=== PATIENT | male | born 1960 | race Caucasian/White ===

== ENCOUNTER 2021-03-30 09:09 | Day surgery (SDC) | payer OTHER ==
[2021-03-28 11:55] VITALS: BMI 29.6
[~2021-03-30 09:09] MED LIST: LACTATED RINGERS 1,000 ML IV SCH; LIDOCAINE 1% (10MG/ML) FOR IV START INTRADERMA PRN
[2021-03-30 10:48] VITALS: RESP 16; TEMP 98.1
[2021-03-30] MEDS ORDERED: PROPOFOL 10 MG/ML 20 ML VIAL IV ONE (12:20)
--- NOTE | 2021-03-30 12:24 | P.GSHP ---
History of Present Illness H&P Date: 03/30/21 Chief Complaint: GI bleed This is a 60-year-old male who presents today for colonoscopy. Patient has issues with rectal bleeding. Past Medical History Past Medical History: GERD/Reflux, Hyperlipidemia, Hypertension, Myocardial Infarction ([place]), Syncope Last Myocardial Infarction Date:: 03/31/15 History of Any Multi-Drug Resistant Organisms: None Reported Past Surgical History: Appendectomy, Bowel Resection, Heart Catheterization With Stent, Hernia Repair Additional Past Surgical History / Comment(s): hernia x3, COLONOSCOPY Past Anesthesia/Blood Transfusion Reactions: No Reported Reaction Date of Last Stent Placement:: 03/31/15 Smoking Status: Never smoker - Past Family History Father Family Medical History: Cancer Medications and Allergies Home Medications Medication Instructions Recorded Confirmed Type Atomoxetine HCl 25 mg PO DAILY 03/28/21 03/28/21 History Atorvastatin [Lipitor] 20 mg PO DAILY 03/28/21 03/28/21 History Losartan [Cozaar] 25 mg PO DAILY 03/28/21 03/28/21 History Meclizine [Antivert] 25 mg PO TID PRN 03/28/21 03/28/21 History Pantoprazole [Protonix] 40 mg PO DAILY 03/28/21 03/28/21 History Sertraline [Zoloft] 50 mg PO DAILY 03/28/21 03/28/21 History Allergies Allergy/AdvReac Type Severity Reaction Status Date / Time No Known Allergies Allergy Verified 03/30/21 10:45 Surgical - Exam Vital Signs Temp Pulse Resp BP Pulse Ox 98.1 F 84 16 143/78 95 03/30/21 10:46 03/30/21 10:46 03/30/21 10:46 03/30/21 10:46 03/30/21 10:46 - General well developed, well nourished, no distress - Eyes PERRL - ENT normal pinna - Neck no masses - Respiratory normal expansion - Cardiovascular Rhythm: regular - Abdomen Abdomen: soft, non tender Assessment and Plan Assessment: GI bleed. We'll perform colonoscopy
--- NOTE | 2021-03-30 12:50 | P.OP ---
Date of Procedure: 03/30/21 Preoperative Diagnosis: GI bleed Postoperative Diagnosis: Diverticulosis Procedure(s) Performed: Colonoscopy Anesthesia: MAC Surgeon: Sherman Pringle Pathology: none sent Condition: stable Disposition: PACU Description of Procedure: The patient's placed on the endoscopy table in the lateral position. He received IV sedation. Digital rectal exam was performed which revealed no abnormalities. Flexible colonoscope was then placed patient anus and passed through the colon. The colonoscope could not be advanced beyond sigmoid colon secondary to tortuosity valve. At this point the scope was withdrawn. The scope was replaced with a pediatric scope.. Scope was able to be placed throughout the entire colon into the ileocecal valve. The cecum, ascending and transverse colon appeared normal. In the descending and sigmoid colon there is mild to moderate diverticulosis. The scope was then brought back the rectum this appeared normal. Scope withdrawn for patient. There is no evidence of GI bleed. His presumed patient may have had a diverticular bleed.
[2021-03-30 13:03] VITALS: BP 146/82; PULSE 60
== END 2021-03-30 13:27 | disposition home or self-care (01) ==
LOC: ORWHC2ENDO 09:09
PROVIDERS: ATTEND Surgery
DX: Q43.8 Other specified congenital malformations of intestine (principal); K92.2 Gastrointestinal hemorrhage, unspecified; K57.30 Diverticulosis of large intestine without perforation or abscess without bleeding; I25.10 Atherosclerotic heart disease of native coronary artery without angina pectoris; F32.A Depression, unspecified; K21.9 Gastro-esophageal reflux disease without esophagitis; E78.5 Hyperlipidemia, unspecified; I10 Essential (primary) hypertension; I25.2 Old myocardial infarction; Z97.2 Presence of dental prosthetic device (complete) (partial); Z90.49 Acquired absence of other specified parts of digestive tract; Z95.5 Presence of coronary angioplasty implant and graft; Z98.890 Other specified postprocedural states; Z80.9 Family history of malignant neoplasm, unspecified; Z79.899 Other long term (current) drug therapy
CPT/HCPCS: 45378; J2704

== ENCOUNTER → 2021-06-14 | Outpatient (CLI) | payer OTHER ==
[2021-06-14 15:07] LABS: Basophils # (A) 0.04 X 10*3/uL (0.00-0.10); Basophils % (A) 0.4 %; Eosinophils # (A) 0.12 X 10*3/uL (0.04-0.35); Eosinophils % (A) 1.3 %; HCT 46.5 % (39.6-50.0); HGB 14.7 g/dL (13.0-17.0); Lymphocytes # (A) 1.96 X 10*3/uL (0.90-5.00); Lymphocytes % (A) 21.9 %; MCHC 31.6 g/dL (32.0-37.0); MCV 91.7 fL (80.0-97.0); Mean Platelet Volume 9.1 fL (9.5-12.2); Monocytes # (A) 0.87 X 10*3/uL (0.20-1.00); Monocytes % (A) 9.7 %; Neutrophils # (A) 5.94 X 10*3/uL (1.80-7.70); Neutrophils % (A) 66.3 %; Platelet Count 268 X 10*3/uL (140-440); RBC 5.07 X 10*6/uL (4.40-5.60); RDW 13.7 % (11.5-14.5); WBC 8.97 X 10*3/uL (4.50-10.00)
[2021-06-14 15:21] LABS: Anion Gap 11.3 mmol/L (10.00-18.00); Carbon Dioxide 26.7 mmol/L (20.0-27.5); Potassium 4.2 mmol/L (3.5-5.5)
== END | disposition home or self-care (01) ==
LOC: LABPAT 10:10
PROVIDERS: ATTEND Orthopaedic Surgery
DX: Z01.812 Encounter for preprocedural laboratory examination (principal); M23.91 Unspecified internal derangement of right knee
CPT/HCPCS: 80051; 85025; 93005

== ENCOUNTER 2021-06-29 13:43 | Observation (INO) | payer OTHER ==
[2021-06-29] MEDS ORDERED: SODIUM CHLORIDE 0.9% 500 ML 500 ML IV ONE (14:03)
[2021-06-29 14:40] LABS: Basophils % (A) 0 %; Eosinophils # (A) 0.1 k/uL (0-0.7); Eosinophils % (A) 1 %; HCT 49.3 % (39.0-53.0); HGB 16.5 gm/dL (13.0-17.5); Lymphocytes # (A) 0.5 k/uL (1.0-4.8); Lymphocytes % (A) 4 %; MCH 30.4 pg (25.0-35.0); MCHC 33.5 g/dL (31.0-37.0); MCV 90.6 fL (80.0-100.0); Mean Platelet Volume 6.5; Monocytes # (A) 0.4 k/uL (0-1.0); Monocytes % (A) 3 %; Neutrophils # (A) 13.4 k/uL (1.3-7.7); Neutrophils % (A) 92 %; Platelet Count 304 k/uL (150-450); RBC 5.44 m/uL (4.30-5.90); RDW 13.8 % (11.5-15.5); WBC 14.5 k/uL (3.8-10.6)
[2021-06-29] MEDS ORDERED: HYDROmorphone 0.5 MG/0.5 ML SYRINGE IVP STA (14:41)
[2021-06-29 14:49] LABS: INR 0.9 (<1.2); Partial Thromboplastin Time 23.4 sec (22.0-30.0); Prothrombin Time 10.3 sec (9.0-12.0)
[2021-06-29 14:56] LABS: ALT 21 U/L (4-49); AST 29 U/L (17-59); African American GFR (CKD) >90 (>60 ml/min/1.73 sqM); Albumin 4.4 g/dL (3.5-5.0); Alkaline Phosphatase 113 U/L (38-126); Anion Gap 10 mmol/L; Blood Urea Nitrogen 21 mg/dL (9-20); Calcium 9.3 mg/dL (8.4-10.2); Carbon Dioxide 26 mmol/L (22-30); Chloride 103 mmol/L (98-107); Glucose 107 mg/dL (74-99); Magnesium 1.9 mg/dL (1.6-2.3); Non-African American GFR(CKD) >90 (>60 ml/min/1.73 sqM); Potassium 4.5 mmol/L (3.5-5.1); Sodium 139 mmol/L (137-145); Total Bilirubin 0.9 mg/dL (0.2-1.3); Total Protein 7.8 g/dL (6.3-8.2)
--- NOTE | 2021-06-29 15:09 | XR ---
EXAMINATION TYPE: XR chest 1V portable DATE OF EXAM: 06/29/2021 COMPARISON: Chest x-ray January 08, 2013 HISTORY: Chest pain. Recent knee surgery. TECHNIQUE: Single AP portable frontal upright view of the chest is obtained. FINDINGS: There is new central vascular congestion. Back while mild cardiomegaly redemonstrated. T he osseous structures are intact. IMPRESSION: New mild to moderate central vascular congestion consistent with CHF exacerbation or flu id overload state. Correlate clinically.
--- NOTE | 2021-06-29 16:01 | CT ---
EXAMINATION TYPE: CT angio chest DATE OF EXAM: 06/29/2021 3:38 PM COMPARISON: CT abdomen and pelvis dated 01/08/2013 HISTORY: Knee surgery 6 days ago. Mid chest pain radiating to back and up left side of neck with naus ea. CT DLP: 375.1 mGycm Automated exposure control for dose reduction was used. CONTRAST: CTA scan of the thorax is performed with IV Contrast, patient injected with 100 mL of Isovue 370, MIP reconstructed images were performed and reviewed. FINDINGS: Artifactual images. No filling defect seen within the pulmonary trunk, main pulmonary arteries, lobar and segmental arteries. Subsegmental arteries are suboptimally assessed. The pulmonary trunk measure s up to 2.6 cm. Bovine aortic arch. No evidence of aortic dissection or aneurysm. Minimal aortic athe rosclerotic calcifications. Increased cardiac size, please correlate with echocardiographic results. No pathologically enlarged lymph nodes in the chest. Subsegmental atelectasis is seen in the left low er lobe with bilateral basal linear atelectasis and peripheral reticulations. Slight loss of volume o f the lower lobes. 7 mm nodule is seen at the anterior aspect of the middle lobe, not completely incl uded in 2013 CT abdomen. Recommend follow-up CT scan in 3 months for reassessment. 3 mm nodule is seen at the lateral aspect of the left upper lobe on image 52, series 606. No pleural or pericardial effusion. Right hepatic dome hypodensity measuring 3.1 x 4.1 cm compared to 5.6 x 7.[address] abdomen consistent with a benign lesion, possibly representing a regressing hemangioma. Degenerative changes of the thoracic spine. No aggressive bone lesion. IMPRESSION: Suboptimal CTA. No major or central pulmonary embolism. No aortic dissection. 7 mm right middle lobe nodule, for follow-up CT scan in 3 months. Other incidental findings as descri bed above.
[2021-06-29] MEDS ORDERED: ENOXAPARIN 40 MG/0.4 ML SYRINGE SQ STA (16:46)
--- NOTE | 2021-06-29 16:58 | ED ---
General Adult HPI - General Chief complaint: Chest Pain Stated complaint: chest pain Time Seen by Provider: 06/29/21 13:50 Source: patient, RN notes reviewed, old records reviewed Mode of arrival: wheelchair Limitations: no limitations - History of Present Illness Initial comments: 61-year-old male presenting for evaluation of central chest pain and mild dyspnea. Patient is status post right total knee. He developed the symptoms this morning. He states he had been doing quite well in the postoperative period. No fever. No cough. Mild dyspnea. No history of asthma or COPD. - Related Data Home Medications Medication Instructions Recorded Confirmed Atorvastatin [Lipitor] 20 mg PO DAILY 03/28/21 06/29/21 Losartan [Cozaar] 25 mg PO DAILY 03/28/21 06/29/21 Pantoprazole [Protonix] 40 mg PO DAILY 03/28/21 06/29/21 Sertraline [Zoloft] 50 mg PO DAILY 03/28/21 06/29/21 Atomoxetine HCl [Strattera] 40 mg PO DAILY 06/21/21 06/29/21 Allergies Allergy/AdvReac Type Severity Reaction Status Date / Time No Known Allergies Allergy Verified 06/29/21 16:11 Review of Systems ROS Statement: Those systems with pertinent positive or pertinent negative responses have been documented in the HPI. ROS Other: All systems not noted in ROS Statement are negative. Past Medical History Past Medical History: GERD/Reflux, Hyperlipidemia, Hypertension, Myocardial Infarction ([place]), Syncope Additional Past Medical History / Comment(s): hx "twisted bowel', Last Myocardial Infarction Date:: 03/31/15 History of Any Multi-Drug Resistant Organisms: None Reported Past Surgical History: Appendectomy, Bowel Resection, Heart Catheterization With Stent, Hernia Repair, Orthopedic Surgery Additional Past Surgical History / Comment(s): hernia x3, COLONOSCOPY, one cardiac stent Past Anesthesia/Blood Transfusion Reactions: No Reported Reaction Date of Last Stent Placement:: 03/31/15 Past Psychological History: ADD/ADHD Smoking Status: Never smoker Past Alcohol Use History: None Reported Past Drug Use History: None Reported - Past Family History Father Family Medical History: Cancer Mother Family Medical History: Cancer General Exam Limitations: no limitations General appearance: alert, in no apparent distress Head exam: Present: atraumatic, normocephalic Eye exam: Present: normal appearance, PERRL ENT exam: Present: normal exam Neck exam: Present: normal inspection. Absent: tenderness, meningismus Respiratory exam: Present: normal lung sounds bilaterally. Absent: respiratory distress, rales Cardiovascular Exam: Present: normal rhythm, tachycardia GI/Abdominal exam: Present: soft. Absent: distended, tenderness, guarding Extremities exam: Present: other (Dressing is clean dry and intact, compartments are softsignificant swelling in the right lower extremity.) Neurological exam: Present: alert, oriented X3, CN II-XII intact. Absent: motor sensory deficit Psychiatric exam: Present: normal affect, normal mood Skin exam: Present: warm, dry, intact. Absent: cyanosis, diaphoretic Course Vital Signs 06/29/21 13:45 Temperature 99.2 F Pulse Rate 117 H Respiratory 24 Rate Blood Pressure 134/81 O2 Sat by Pulse 96 Oximetry EKG Findings - EKG Comments: EKG Findings:: EKG: Sinus tachycardia, rate of 102, TX interval 152, QRS duration 82, QTC 400, no ST segment elevation Medical Decision Making - Medical Decision Making 61-year-old male presenting with chest pain and mild dyspnea in the postoperative period after total knee. There is concern for pulmonary embolism. Workup is initiated. EKG shows sinus tachycardia. Patient's has a mild leukocytosis 14.5. CMP is within normal limits. Troponin is negative, coronavirus testing is negative. CT angiography is negative for large central pulmonary embolism. I did discuss case with Dr. Dawn who will admit. Serial cardiac enzymes will be ordered. Patient given dose of Lovenox in the emergency department. Echocardiogram will be ordered. - Lab Data Result diagrams: 06/29/21 14:21 06/29/21 14:21 Lab Results 06/29/21 06/29/21 06/29/21 Range/Units 14:21 14:21 14:21 WBC 14.5 H (3.8-10.6) k/uL RBC 5.44 (4.30-5.90) m/uL Hgb 16.5 (13.0-17.5) gm/dL Hct 49.3 (39.0-53.0) % MCV 90.6 (80.0-100.0) fL MCH 30.4 (25.0-35.0) pg MCHC 33.5 (31.0-37.0) g/dL RDW 13.8 (11.5-15.5) % Plt Count 304 (150-450) k/uL MPV 6.5 Neutrophils % 92 % Lymphocytes % 4 % Monocytes % 3 % Eosinophils % 1 % Basophils % 0 % Neutrophils # 13.4 H (1.3-7.7) k/uL Lymphocytes # 0.5 L (1.0-4.8) k/uL Monocytes # 0.4 (0-1.0) k/uL Eosinophils # 0.1 (0-0.7) k/uL Basophils # 0.0 (0-0.2) k/uL PT 10.3 (9.0-12.0) sec INR 0.9 (<1.2) APTT 23.4 (22.0-30.0) sec Sodium 139 (137-145) mmol/L Potassium 4.5 (3.5-5.1) mmol/L Chloride 103 (98-107) mmol/L Carbon Dioxide 26 (22-30) mmol/L Anion Gap 10 mmol/L BUN 21 H (9-20) mg/dL Creatinine 0.81 (0.66-1.25) mg/dL Est GFR (CKD-EPI)AfAm >90 (>60 ml/min/1.73 sqM) Est GFR (CKD-EPI)NonAf >90 (>60 ml/min/1.73 sqM) Glucose 107 H (74-99) mg/dL Calcium 9.3 (8.4-10.2) mg/dL Magnesium 1.9 (1.6-2.3) mg/dL Total Bilirubin 0.9 (0.2-1.3) mg/dL AST 29 (17-59) U/L ALT 21 (4-49) U/L Alkaline Phosphatase 113 (38-126) U/L Troponin I (0.000-0.034) ng/mL Total Protein 7.8 (6.3-8.2) g/dL Albumin 4.4 (3.5-5.0) g/dL Coronavirus (PCR) (Not Detectd) 06/29/21 06/29/21 Range/Units 14:21 14:21 WBC (3.8-10.6) k/uL RBC (4.30-5.90) m/uL Hgb (13.0-17.5) gm/dL Hct (39.0-53.0) % MCV (80.0-100.0) fL MCH (25.0-35.0) pg MCHC (31.0-37.0) g/dL RDW (11.5-15.5) % Plt Count (150-450) k/uL MPV Neutrophils % % Lymphocytes % % Monocytes % % Eosinophils % % Basophils % % Neutrophils # (1.3-7.7) k/uL Lymphocytes # (1.0-4.8) k/uL Monocytes # (0-1.0) k/uL Eosinophils # (0-0.7) k/uL Basophils # (0-0.2) k/uL PT (9.0-12.0) sec INR (<1.2) APTT (22.0-30.0) sec Sodium (137-145) mmol/L Potassium (3.5-5.1) mmol/L Chloride (98-107) mmol/L Carbon Dioxide (22-30) mmol/L Anion Gap mmol/L BUN (9-20) mg/dL Creatinine (0.66-1.25) mg/dL Est GFR (CKD-EPI)AfAm (>60 ml/min/1.73 sqM) Est GFR (CKD-EPI)NonAf (>60 ml/min/1.73 sqM) Glucose (74-99) mg/dL Calcium (8.4-10.2) mg/dL Magnesium (1.6-2.3) mg/dL Total Bilirubin (0.2-1.3) mg/dL AST (17-59) U/L ALT (4-49) U/L Alkaline Phosphatase (38-126) U/L Troponin I <0.012 (0.000-0.034) ng/mL Total Protein (6.3-8.2) g/dL Albumin (3.5-5.0) g/dL Coronavirus (PCR) Not Detected (Not Detectd) Disposition Clinical Impression: Chest pain Disposition: [facility] Condition: Stable Instructions (If sedation given, give patient instructions): Chest Pain (ED) Is patient prescribed a controlled substance at d/c from ED?: No Referrals: Charissa Dawn DO [Primary Care Provider] - 1-2 days Decision to Admit Reason: Admit from EC Decision Date: 06/29/21 Decision Time: 17:02
[2021-06-29] MEDS ORDERED: ACETAMINOPHEN TAB 325 MG TAB PO PRN (17:02)
[2021-06-29] MEDS ORDERED: HYDROmorphone 1 MG/ML 1 ML SYRINGE IVP PRN ×3 (17:02)
[2021-06-29] MEDS ORDERED: ONDANSETRON 4 MG/2 ML VIAL IVP PRN (17:02)
[2021-06-29] MEDS ORDERED: NALOXONE 0.4 MG/ML 1 ML VIAL IV PRN (17:02)
--- NOTE | 2021-06-30 07:15 | P.CRDCN ---
History of Present Illness Consult date: 06/30/21 History of present illness: The patient is a 61-year-old male with a known history of hypertension and hyperlipidemia, status post stenting few years ago at [facility] for according to him had cardiac catheterization [address] [facility] and it was unremarkable. He underwent right total knee arthroplasty recently and presented with chest discomfort. The discomfort started yesterday at rest and he felt nauseated and dizzy and presyncopal. He came into the emergency room for further evaluation. Some of the discomfort was respirophasi c. He has no chest discomfort prior to his surgery. He denies any dizziness or palpitations. He denies any prior history of CHF or unstable angina. He has no PND, orthopnea or peripheral edema. He had no recent cardiac workup. His Cordis factors are positive for hypertension and hyperlipidemia. He is a nondiabetic. His lab data showed troponin less than 0.012, BUN/creatinine 21 and 0.81. H emoglobin 16.5. His EKG showed sinus mechanism with no acute ST segment changes that are rate of 102. CT angiogram showed no evidence of major or central pulmonary embolism. Review of system: Respiratory: No history of asthma, bronchitis or recent cough. GI: No nausea, vomiting. No history of peptic ulcer disease. No recent GI bleed. : No hematuria or dysuria. Nervous System: No stroke or seizure. Physical examination: 61-year-old male alert and oriented no apparent distress, blood pressure 107/60 with a heart rate in the 70s Head: Normocephalic. Eyes: Sclerae nonicteric. Neck: Good carotid upstroke, no bruit, no jugular venous distention. Lungs: Clear to auscultation. Heart: Regular rate and rhythm, S1-S2, no S3, no rub. Systolic murmur at the base. Reproducible respirophasic discomfort Abdomen: Soft nontender, positive bowel sounds no organomegaly. Extremities: Trace right edema, intact distal pulses. Impression: 1. Chest discomfort of unclear etiology, no evidence of acute coronary syndrome in a patient with known history of CAD 2. Status post right total knee arthroplasty, by CT angiogram no evidence of major PE 3. History of hypertension 4. History of hyperlipidemia Plan: 1. Add aspirin 2. Obtain an echocardiogram with Doppler 3. Dobutamine stress echocardiogram 4. Depending on the results of the testing further recommendations will be made 5. Thank you for this consult we will follow with you. Past Medical History Past Medical History: GERD/Reflux, Hyperlipidemia, Hypertension, Myocardial Infarction ([place]), Syncope Additional Past Medical History / Comment(s): hx "twisted bowel', Last Myocardial Infarction Date:: 03/31/15 History of Any Multi-Drug Resistant Organisms: None Reported Past Surgical History: Appendectomy, Bowel Resection, Heart Catheterization With Stent, Hernia Repair, Orthopedic Surgery Additional Past Surgical History / Comment(s): hernia x3, COLONOSCOPY, one cardiac stent Past Anesthesia/Blood Transfusion Reactions: No Reported Reaction Date of Last Stent Placement:: 03/31/15 Past Psychological History: ADD/ADHD Smoking Status: Never smoker Past Alcohol Use History: None Reported Past Drug Use History: None Reported - Past Family History Father Family Medical History: Cancer Mother Family Medical History: Cancer Medications and Allergies Home Medications Medication Instructions Recorded Confirmed Type Atorvastatin [Lipitor] 20 mg PO DAILY 03/28/21 06/29/21 History Losartan [Cozaar] 25 mg PO DAILY 03/28/21 06/29/21 History Pantoprazole [Protonix] 40 mg PO DAILY 03/28/21 06/29/21 History Sertraline [Zoloft] 50 mg PO DAILY 03/28/21 06/29/21 History Atomoxetine HCl [Strattera] 40 mg PO DAILY 06/21/21 06/29/21 History Allergies Allergy/AdvReac Type Severity Reaction Status Date / Time No Known Allergies Allergy Verified 06/29/21 16:11 Physical Exam Vitals: Vital Signs Temp Pulse Pulse Resp BP BP BP 06/30/21 02:52 98.2 F 79 16 107/64 06/29/21 23:21 98.8 F 89 16 120/73 06/29/21 22:00 97.9 F 83 16 125/79 06/29/21 18:13 101 H 18 117/69 06/29/21 13:45 99.2 F 117 H 24 134/81 Pulse Ox 06/30/21 02:52 92 L 06/29/21 23:21 95 06/29/21 22:00 99 06/29/21 18:13 98 06/29/21 13:45 96 Intake and Output 06/29/21 06/30/21 06/30/21 22:59 06:59 14:59 Other: # Voids 1 Weight 85.729 kg Results 06/29/21 14:21 06/29/21 14:21 Cardiac Enzymes 06/29/21 06/29/21 06/29/21 Range/Units 14:21 14:21 17:32 AST 29 (17-59) U/L Troponin I <0.012 <0.012 (0.000-0.034) ng/mL 06/29/21 Range/Units 20:49 AST (17-59) U/L Troponin I <0.012 (0.000-0.034) ng/mL Coagulation 06/29/21 Range/Units 14:21 PT 10.3 (9.0-12.0) sec APTT 23.4 (22.0-30.0) sec CBC 06/29/21 Range/Units 14:21 WBC 14.5 H (3.8-10.6) k/uL RBC 5.44 (4.30-5.90) m/uL Hgb 16.5 (13.0-17.5) gm/dL Hct 49.3 (39.0-53.0) % Plt Count 304 (150-450) k/uL Comprehensive Metabolic Panel 06/29/21 Range/Units 14:21 Sodium 139 (137-145) mmol/L Potassium 4.5 (3.5-5.1) mmol/L Chloride 103 (98-107) mmol/L Carbon Dioxide 26 (22-30) mmol/L BUN 21 H (9-20) mg/dL Creatinine 0.81 (0.66-1.25) mg/dL Glucose 107 H (74-99) mg/dL Calcium 9.3 (8.4-10.2) mg/dL AST 29 (17-59) U/L ALT 21 (4-49) U/L Alkaline Phosphatase 113 (38-126) U/L Total Protein 7.8 (6.3-8.2) g/dL Albumin 4.4 (3.5-5.0) g/dL Current Medications Generic Name Dose Route Start Last Admin Trade Name Freq PRN Reason Stop Dose Admin Acetaminophen 650 mg 06/29/21 17:02 Acetaminophen Tab 325 Mg Tab PO Q6HR PRN Mild Pain or Fever > 100.5 Hydromorphone HCl 0.5 mg 06/29/21 17:02 06/29/21 19:40 Hydromorphone 1 Mg/Ml 1 Ml Syringe IVP 0.5 mg Q3HR PRN Administration Moderate Pain Hydromorphone HCl 1 mg 06/29/21 17:02 06/29/21 23:52 Hydromorphone 1 Mg/Ml 1 Ml Syringe IVP 1 mg Q3HR PRN Administration Severe Pain Losartan Potassium 25 mg 06/30/21 09:00 Losartan 25 Mg Tab PO DAILY ROSALIA Naloxone HCl 0.2 mg 06/29/21 17:02 Naloxone 0.4 Mg/Ml 1 Ml Vial IV Q2M PRN Opioid Reversal Ondansetron HCl 4 mg 06/29/21 17:02 Ondansetron 4 Mg/2 Ml Vial IVP Q8HR PRN Nausea And Vomiting Pantoprazole Sodium 40 mg 06/30/21 09:00 Pantoprazole 40 Mg/10 Ml Vial IV DAILY ROSALIA Sertraline HCl 50 mg 06/30/21 09:00 Sertraline 50 Mg Tab PO DAILY [facility] Intake and Output 06/29/21 06/30/21 06/30/21 22:59 06:59 14:59 Other: # Voids 1 Weight 85.729 kg 06/29/21 14:21 06/29/21 14:21
[2021-06-30] MEDS ORDERED: DOBUTamine DRIP for NUC MED 500 MG in DEXTROSE/WATER 1 250ML.BAG IV PRN (07:30)
[2021-06-30] MEDS ORDERED: PANTOPRAZOLE 40 MG/10 ML VIAL IV SCH (09:00)
[2021-06-30] MEDS ORDERED: ATORVASTATIN 40 MG TAB PO SCH (09:00)
[2021-06-30] MEDS ORDERED: ASPIRIN 81 MG PO SCH (09:00)
[2021-06-30] MEDS ORDERED: LOSARTAN 25 MG TAB PO SCH (09:00)
[2021-06-30] MEDS ORDERED: SERTRALINE 50 MG TAB PO SCH (09:00)
[2021-06-30] MEDS ORDERED: DOBUTamine DRIP for NUC MED 500 MG/250 ML BAG IV ONE (09:15)
[2021-06-30 11:31] LABS: Chol/HDL Ratio 3.82 Ratio; LDL Cholesterol,Calculated 89.9 mg/dL (0.0-131.0)
--- NOTE | 2021-06-30 12:21 | ECHOF ---
Referral Reason:cp MEASUREMENTS -------- HEIGHT: 165.1 cm WEIGHT: 85.7 kg BP: RVIDd: 2.8 cm (< 3.3) IVSd: 1.0 cm (0.6 - 1.1) LVIDd: 4.0 cm (3.9 - 5.3) LVPWd: 1.1 cm (0.6 - 1.1) IVSs: 1.1 cm LVIDs: 3.2 cm LVPWs: 1.3 cm LA Diam: 3.8 cm (2.7 - 3.8) LAESV Index (A-L): 26.44 ml/m Ao Diam: 3.4 cm (2.0 - 3.7) AV Cusp: 1.6 cm (1.5 - 2.6) LA Diam: 3.9 cm (2.7 - 3.8) MV EXCURSION: 16.096 mm (> 18.000) MV EF SLOPE: 104 mm/s (70 - 150) EPSS: 0.1 cm MV E Haroldo: 0.68 m/s MV DecT: 174 ms MV A Haroldo: 0.77 m/s MV E/A Ratio: 0.88 RAP: 5.00 mmHg RVSP: 26.95 mmHg FINDINGS -------- Sinus rhythm. This was a technically adequate study. LV size, wall thickness and systolic function are normal, with an EF greater than 55%. The left kirk tricular size is normal. The right ventricle is normal in size. Normal LA size by volume 22+/-6 ml/m2. The right atrial size is normal. There is mild aortic valve sclerosis. The mitral valve is normal. Mild mitral regurgitation is present. The tricuspid valve appears structurally normal. Mild tricuspid regurgitation present. Right vent ricular systolic pressure is normal at < 35 mmHg. The right ventricular systolic pressure, as measu red by Doppler, is 26.95mmHg. There is no pulmonic regurgitation present. The aortic root size is normal. There is no pericardial effusion. CONCLUSIONS -------- 1. LV size, wall thickness and systolic function are normal, with an EF greater than 55%. 2. Normal LA size by volume 22+/-6 ml/m2. 3. Mild mitral regurgitation is present. 4. Mild tricuspid regurgitation present. 5. There is no pericardial effusion. COMPLIANCE SPEC: Marcela Cadena RDCS
[2021-06-30 14:13] VITALS: BP 126/66; PULSE 76; RESP 15; TEMP 98
--- NOTE | 2021-06-30 14:24 | ECHOS ---
STRESS ECHOCARDIOGRAM INDICATIONS: Chest pain BASELINE HEART RATE: 78 BASELINE BLOOD PRESSURE: 112/73 MAXIMUM HEART RATE: 140 MAXIMUM BLOOD PRESSURE: 149/63 85% MPHR: 134 100% MPHR: 158 METS: MAXIMUM STAGE REACHED: III TOTAL EXERCISE TIME: 7:20 CLINICAL INFORMATION: Baseline rhythm is sinus mechanism, rate of 78, normal axis and intervals. Normal echocardiogram. Baseline blood pressure 112/73 mmHg. Patient received infusion of dobutamine per protocol; peak rate 140 beats per minute, which is equal to 88% of maximum predicted heart rate. Peak blood pressure 149/63 mmHg. Electrocardiograph monitoring revealed no evidence of diagnostic ischemic ST deviation. FINDINGS: Baseline echocardiogram revealed normal wall thickening and motion. At peak infusion there was normal wall thickening and motion without hypokinesis or dyskinesis. CONCLUSION: 1. Normal electrocardiographic response to dobutamine infusion with rare PVCs. 2. Normal stress echocardiogram with no evidence of stress-induced ischemia. MMODL / IJN: [id number] /
== END 2021-06-30 15:47 ==
LOC: EC 13:43 → 6NMEDSUR 17:04
PROVIDERS: ADMIT Family Medicine; ATTEND Family Medicine
DX: R07.89 Other chest pain (principal); Z20.822 Contact with and (suspected) exposure to COVID-19; I11.9 Hypertensive heart disease without heart failure; E78.5 Hyperlipidemia, unspecified; D72.829 Elevated white blood cell count, unspecified; M79.89 Other specified soft tissue disorders; R91.1 Solitary pulmonary nodule; R42 Dizziness and giddiness; R11.0 Nausea; R06.00 Dyspnea, unspecified; I25.2 Old myocardial infarction; K21.9 Gastro-esophageal reflux disease without esophagitis; F90.9 Attention-deficit hyperactivity disorder, unspecified type; R00.0 Tachycardia, unspecified; Z79.899 Other long term (current) drug therapy; Z96.651 Presence of right artificial knee joint; Z90.49 Acquired absence of other specified parts of digestive tract; Z95.5 Presence of coronary angioplasty implant and graft; Z80.9 Family history of malignant neoplasm, unspecified
CPT/HCPCS: 99285; 96374; 96361; 96376 ×2; 96372; 96375; 36415; 93005; 93306; 93351; 80061; 80053; 83735; 84484; 85025; 85610; 85730; 87635; 71045; 71275; G0378 ×2; J1250; J1650; J1170 ×2; C9113; Q9967

== ENCOUNTER → 2022-04-04 | Outpatient (CLI) | payer OTHER ==
--- NOTE | 2022-04-04 12:15 | MR ---
EXAMINATION TYPE: MR liver wo/w con DATE OF EXAM: 04/04/2022 7:48 AM INDICATION: Patient age:Male; 61 years old; Reason for study: R16.0 hepatomegaly; PH[facility]. Hepatomegaly COMPARISON: CT scan abdomen from 01/08/2013, CT angiogram chest 06/29/2021. TECHNIQUE: Multiplanar multi-sequence imaging was performed without and with contrast. Post contrast imaging was performed. IV Contrast: 9 cc Gadavist FINDINGS: LOWER CHEST: No gross irregularity. ABDOMEN Liver: Cystic lesion within the hepatic dome measuring 2.6 x 2.7 x 3.2 cm this has progressive periph eral enhancement with nonenhancement of the central portion which appears high T2 low T1 signal. Ther e is evidence of restricted diffusion within this lesion. This lesion was previously 7.3 cm in 2012 a nd had peripheral discontinuous enhancement pattern. Additional segment IVb high T2 low T1 signal cysts which does not demonstrate enhancement. Gallbladder and Bile ducts: High T2 cystic changes consistent with fundal adenomyomatosis of the gall bladder. Pancreas: Unremarkable. Spleen: High T2 low T1 signal subcentimeter probable cyst. Adrenal glands: Unremarkable. Kidneys: Subcentimeter left renal cyst which is high T2 low T1 signal. Stomach and Bowel: Unremarkable as visualized. Peritoneum: No evidence of pneumoperitoneum, free fluid, or adenopathy. Vasculature: Unremarkable. No aortic aneurysm.Retroaortic left renal vein. Abdominal wall: Unremarkable. Musculoskeletal: The osseous structures appear intact. IMPRESSION: 1. The lesion within the right hepatic dome measuring up to 3.2 cm which was previously larger in 20 13 measuring up to 7.3 cm now has a more cystic appearance with peripheral enhancement. Given finding s have decreased in size may represent benign etiology such as atypical hemangioma versus adenoma ilia halie other etiologies. Continued attention on surveillance imaging should be performed. 2. No evidence of metastatic disease at this time. 3. Fundal gallbladder adenomyomatosis. 4. No evidence for acute intraluminal process.
== END | disposition home or self-care (01) ==
LOC: RADMRIMAIN 06:54
PROVIDERS: ATTEND Physician Assistant
DX: R16.0 Hepatomegaly, not elsewhere classified (principal); K76.89 Other specified diseases of liver
CPT/HCPCS: 74183; A9585

== ENCOUNTER → 2022-11-15 | Outpatient (CLI) | payer OTHER ==
--- NOTE | 2022-11-15 15:57 | CT ---
EXAMINATION TYPE: CT urogram wo/w con CT DLP: 2930.60 mGycm, Automated exposure control for dose reduction was used. DATE OF EXAM: 11/15/2022 3:43 PM COMPARISON: CT abdomen pelvis most recent from 01/08/2013, MR liver 04/04/2022 CLINICAL INDICATION:Male, 62 years old with history of R82.89 R31.9; PHH, Painful urination, hx famil y bladder ca. TECHNIQUE: Urogram of the abdomen and pelvis was performed before and after the administration of 100 cc of IV c ontrast Isovue 300 contrast. Delayed imaging was performed. Coronal and sagittal reformats were perfo rmed. One or more CT dose reduction strategies were utilized during this examination. 2D and 3D recon structions are performed to assist visualization of the urinary tract on a separate workstation. FINDINGS: GENITOURINARY: RIGHT KIDNEY AND URETER: No calculi. No hydronephrosis or hydroureter. No renal mass or other lesions . No urothelial lesions: no filling defect, dilation, stricture or wall thickening. LEFT KIDNEY AND URETER: No calculi. No hydronephrosis or hydroureter. Subcentimeter hypodense cortica l foci within the superior pole without evidence for enhancement most consistent with cysts. No solid enhancing mass identified. No urothelial lesions: no filling defect, dilation, stricture or wall thi ckening. URINARY BLADDER: Well distended. Normal, no calculi, mass or other lesions. REPRODUCTIVE: Unremarkable. ABDOMEN LIVER: Decreased size of 3.1 cm hypodense right hepatic dome lesion. Previously measured up to 7.5 cm 2012 and 3.1 cm on prior MR in 2021. No other hepatic lesions identified.. GALLBLADDER AND BILE DUCTS: Unremarkable PANCREAS: Unremarkable. SPLEEN: Unremarkable. ADRENAL GLANDS: Unremarkable. STOMACH AND BOWEL: Scattered distal colon diverticulosis without evidence for acute diverticulitis.. No evidence of bowel obstruction. PERITONEUM: No evidence of pneumoperitoneum, free fluid, or adenopathy. VASCULATURE: No aortic aneurysm. Few pelvic phleboliths. MUSCULOSKELETAL: No acute osseous abnormalities. SOFT TISSUE/ABDOMINAL WALL: Small fat filled umbilical hernia. LOWER CHEST: The visualized lungs are clear. Stable left midlung 3 mm pulmonary nodule dating back to 2012 and considered benign. IMPRESSION: 1. No evidence of urolithiasis or suspicious renal/urothelial neoplasm. 2. Redemonstration of a right hepatic dome 3.1 cm lesion. This is stable from prior MRI in 2021 and h as decreased in size from prior CT in 2019. This again is favored to represent a benign etiology such as an atypical hemangioma versus adenoma versus other etiologies. 3. Colonic diverticulosis without evidence for acute diverticulitis.
== END | disposition home or self-care (01) ==
LOC: RADCTMAIN 13:50
PROVIDERS: ATTEND Family Medicine
DX: K57.30 Diverticulosis of large intestine without perforation or abscess without bleeding (principal); N40.0 Benign prostatic hyperplasia without lower urinary tract symptoms; N39.490 Overflow incontinence; N23 Unspecified renal colic; R31.29 Other microscopic hematuria; Z80.52 Family history of malignant neoplasm of bladder
CPT/HCPCS: 74178; 74400; Q9967